=== PATIENT | male | born 1950 | race Caucasian/White ===

== ENCOUNTER 2021-12-30 14:06 | Emergency (ER) | payer MEDICARE, OTHER ==
[~2021-12-30] VITALS: Ht 167.6 cm; Wt 112.3 kg
[2021-12-30] MEDS ORDERED: PLAVIX75 MG PO (15:45)
[2021-12-30] MEDS ORDERED: METFORMIN HCL500 MG PO (15:45)
[2021-12-30] MEDS ORDERED: CRESTOR40 MG NG (15:45)
[2021-12-30] MEDS ORDERED: CYMBALTA30 MG PO (15:45)
[2021-12-30] MEDS ORDERED: NITROSTAT0.4 MG SL (15:46)
[2021-12-30] MEDS ORDERED: RANEXA1000 MG PO (15:46)
[2021-12-30] MEDS ORDERED: ASPIRIN81 MG PO (15:46)
[2021-12-30] MEDS ORDERED: PROTONIX40 MG PO (15:46)
[2021-12-30] MEDS ORDERED: COZAAR50 MG PO (15:47)
[2021-12-30] MEDS ORDERED: LASIX20 MG PO (15:47)
[2021-12-30] MEDS ORDERED: AMIODARONE HCL200 MG PO (15:48)
[2021-12-30] MEDS ORDERED: K-TAB ER20 MEQ PO (15:48)
[2021-12-30] MEDS ORDERED: DILTIAZEM ER120 M2 PO (15:48)
== END 2021-12-30 16:16 | disposition home or self-care (01) ==
LOC: ED 14:06
DX: S63.611A Unspecified sprain of left index finger, initial encounter (principal); W22.8XXA Striking against or struck by other objects, initial encounter
CPT/HCPCS: 73140; 99283-25